=== PATIENT | female | born 1995 | race Hispanic/Latino ===

== ENCOUNTER 2019-08-06 13:19 | Inpatient (IN) | payer OTHER ==
[~2019-08-06] VITALS: Ht 177.8 cm; Wt 80.3 kg
[~2019-08-06 13:19] MED LIST: IBUP-2784 PO
[2019-08-06] MEDS ORDERED: SODIUM CHLORIDE 0.9% 1000ML 1,000 ML IV ONE ×2 (13:52→16:45)
[2019-08-06] MEDS ORDERED: ONDANSETRON HCL 4 MG/2 ML VIAL ONE (13:52)
[2019-08-06 14:05] LABS: BASOPHILS % (AUTO) 0.4 % (0.0-5.0); EOSINOPHILS % (AUTO) 0.4 % (0.0-8.0); HEMATOCRIT 41.1 % (36-48); LYMPHOCYTES % (AUTO) 11.7 % (21.0-51.0); MEAN CORPUSCULAR HEMOGLOBIN 28.7 pg (27.0-33.0); MEAN CORPUSCULAR HGB CONC 34.7 g/dL (32.0-36.0); MEAN CORPUSCULAR VOLUME 82.7 fL (79-99); MONOCYTES % (AUTO) 5.6 % (3.0-13.0); NEUTROPHILS % (AUTO) 81.9 % (40.0-77.0); PLATELET COUNT (AUTO) 308 K/uL (130-400); RED BLOOD CELL COUNT(AUTO) 4.97 MIL/uL (4.00-5.50); RED CELL DISTRIBUTION WIDTH 12.6 % (11.0-15.5); WHITE BLOOD COUNT (AUTO) 11.2 K/uL (4.8-10.8)
[2019-08-06 14:16] LABS: POTASSIUM 3.8 mmol/L (3.5-5.1)
[2019-08-06 14:21] LABS: BILIRUBIN,TOTAL 0.9 mg/dL (0.2-1.0); TOTAL PROTEIN, SERUM 7.7 g/dL (6.0-8.3)
[2019-08-06 14:22] LABS: AMYLASE 33 U/L (25-115); LIPASE 110 U/L (114-286)
[2019-08-06] MEDS ORDERED: KETOROLAC TROMETHAMINE 30MG/ML ONE (14:34)
[2019-08-06 15:21] LABS: APPEARANCE,URINE Clear (CLEAR); BILIRUBIN,URINE Negative (NEGATIVE); COLOR,URINE Yellow (YELLOW); GLUCOSE, URINE (UA) Negative (NEGATIVE); KETONES,URINE Negative (NEGATIVE); LEUKOCYTE ESTERASE ,URINE Negative (NEGATIVE); NITRATE,URINE Negative (NEGATIVE); OCCULT BLOOD,URINE Moderate (NEGATIVE); PH,URINE 6.5 (5.0-8.0); PROTEIN,URINE Negative (NEGATIVE)
[2019-08-06 15:29] LABS: AMPHET/METH SCREEN,URINE NEGATIVE (NEGATIVE); BARBITURATE SCREEN, URINE NEGATIVE (NEGATIVE); BENZODIAZEPINES SCREEN,URINE NEGATIVE (NEGATIVE); CANNABINOID SCREEN,URINE NEGATIVE (NEGATIVE); COCAINE SCREEN,URINE NEGATIVE (NEGATIVE); OPIATE SCREEN,URINE NEGATIVE (NEGATIVE); PHENCYCLIDINE SCREEN,URINE NEGATIVE (NEGATIVE)
[2019-08-06 15:54] LABS: BACTERIA,URINE Rare /HPF (None Seen); WBC,URINE 0-1 /HPF (0-1)
[2019-08-06 15:55] LABS: SQUAMOUS EPITHELIAL CELL,UR Rare /HPF (0-2)
[2019-08-06] MEDS ORDERED: ONDANSETRON HCL 4 MG/2 ML VIAL IV PRN (16:15)
[2019-08-06] MEDS ORDERED: ACETAMINOPHEN 325 MG TAB PO PRN ×2 (16:15)
[2019-08-06] MEDS ORDERED: ZOSYN 3.375GM+NS 50ML 50 ML IV ONE (17:14)
[2019-08-06] MEDS: ZOSYN 3.375GM+NS 50ML 50 ML IV SCH ×2 (18:00→23:59)
[2019-08-06 20:00] VITALS: BP 130/80
[2019-08-06] MEDS: FAMOTIDINE/PF 20 MG/2 ML VIAL IV SCH (23:39)
[2019-08-06] MEDS: MORPHINE SULFATE 2 MG/ML 1ML SYG IV PRN (23:39)
[2019-08-06 23:41] VITALS: BP 136/89
[2019-08-07] VITALS (25 sets, daily range): BP systolic 109–142; BP diastolic 51–85
[2019-08-07] MEDS: SODIUM CHLORIDE 0.9% 1000ML 2,000 ML IV SCH ×3 (04:26→18:04)
[2019-08-07] MEDS: ZOSYN 3.375GM+NS 50ML 50 ML IV SCH ×4 (06:05→23:40)
[2019-08-07] MEDS: FAMOTIDINE/PF 20 MG/2 ML VIAL IV SCH ×2 (09:05→20:55)
[2019-08-07] MEDS: MORPHINE SULFATE 2 MG/ML 1ML SYG IV PRN (09:05)
--- NOTE | 2019-08-07 10:50 | NUR ---
[employer] MOTHER AT BEDSIDE. PATIENT IS AAOX3, STATES INDEPENDENCE, LIVES WITH HER SON IN PARENTS HOME ALONG WITH BROTHERS AND SISTERS, NO PROVIDER, NO EQUIPMENT, AND FEELS SAFE TO RETURN HOME. Addendum: 08/07/19 at 1109 by MAHESH GILL Amended: Links added.
[2019-08-07] MEDS ORDERED: BUPIVACAINE/PF 0.25% 30ML VIAL IJ ONE (12:31)
[2019-08-07] MEDS ORDERED: LIDOCAINE 1%-EPI 1:100,000 20 ML VIAL IJ ONE (12:31)
--- NOTE | 2019-08-07 12:42 | NUR ---
MEDICATION ZOSYN WAS NOT ADMINISTERED AT 0805. REASSESSMENT WAS BEING DONE. Addendum: 08/07/19 at 1243 by LIAN CHOUDHARY LVN LVN UNABLE TO KEELEYO.
--- NOTE | 2019-08-07 13:10 | NUR ---
PT LEFT UNIT VIA BED TO HOLDING AT THIS TIME.
[2019-08-07] MEDS ORDERED: ONDANSETRON HCL 4 MG/2 ML VIAL ONE (13:12)
[2019-08-07] MEDS ORDERED: SUCCINYLCHOLINE 200MG/10ML SYR ONE (13:12)
[2019-08-07] MEDS ORDERED: LIDOCAINE PF 2% 5ML ABBOJECT ONE (13:12)
[2019-08-07] MEDS ORDERED: DEXAMETHASONE SOD PHOSPHATE 10MG/ML 1ML VIAL ONE (13:12)
[2019-08-07] MEDS ORDERED: NEOSTIGMINE 5MG/5ML SYR IV ONE (13:13)
[2019-08-07] MEDS ORDERED: MIDAZOLAM HCL 1 MG/ML 2ML VIAL ONE (13:13)
[2019-08-07] MEDS ORDERED: GLYCOPYRROLATE 1 MG/5 ML SYRINGE ONE (13:13)
[2019-08-07] MEDS ORDERED: FENTANYL CITRATE PF 50 MCG/1 ML 2ML VIAL ONE ×2 (13:13→14:29)
[2019-08-07] MEDS ORDERED: PROPOFOL 10 MG/ML 20ML VIAL IV ONE (13:13)
[2019-08-07] MEDS ORDERED: ROCURONIUM 10MG/1ML SYR 10 MG/ML ML ONE (13:14)
[2019-08-07] MEDS ORDERED: LACTATED RINGERS 1000ML 1,000 ML IV ONE (13:16)
[2019-08-07] MEDS ORDERED: MEPERIDINE-PF 25 MG/ML SYG ONE ×2 (15:28→15:39)
--- NOTE | 2019-08-07 16:25 | NUR ---
PATIENT RETURNED TO ROOM FROM PACU. PATIENT DROWSY, AROUSED TO VOICE. DRESSINGS TO ABDOMEN DRY AND INTACT. CALL LIGHT LEFT IN REACH. ADVISED PATIENT TO CALL WITH ANY NEEDS OR CONCERNS.
--- NOTE | 2019-08-07 16:40 | NUR ---
ASSISTED PATIENT IN USING BEDPAN. 250 ML OF YELLOW URINE EMPTIED FROM BEDPAN. PERICARE GIVEN. ADVISED PATIENT TO CALL WITH ANY NEEDS. PT VOICED UNDERSTANDING.
[2019-08-07] MEDS ORDERED: OXYCODONE/ACETAMIN 5/325MG TAB PO PRN (17:00)
--- NOTE | 2019-08-07 20:37 | NUR ---
ambulating in the hallway, accompanied by pt is in stable condition Addendum: 08/07/19 at 2037 by ALIZA BERG RN Amended: Links added.
[2019-08-08] MEDS: SODIUM CHLORIDE 0.9% 1000ML 2,000 ML IV SCH ×2 (01:59→09:23)
[2019-08-08 03:30] VITALS: BP 113/56
[2019-08-08] MEDS: ZOSYN 3.375GM+NS 50ML 50 ML IV SCH ×2 (05:46→12:26)
[2019-08-08 06:21] LABS: BASOPHILS % (AUTO) 0.1 % (0.0-5.0); LYMPHOCYTES % (AUTO) 9.8 % (21.0-51.0); MEAN CORPUSCULAR HGB CONC 35.1 g/dL (32.0-36.0); MEAN CORPUSCULAR VOLUME 82.6 fL (79-99); MONOCYTES % (AUTO) 5.8 % (3.0-13.0); NEUTROPHILS % (AUTO) 84.3 % (40.0-77.0); PLATELET COUNT (AUTO) 278 K/uL (130-400); RED CELL DISTRIBUTION WIDTH 12.8 % (11.0-15.5); WHITE BLOOD COUNT (AUTO) 8.1 K/uL (4.8-10.8)
[2019-08-08 06:26] LABS: CREATININE 0.8 mg/dL (0.5-1.5); POTASSIUM 4.1 mmol/L (3.5-5.1)
[2019-08-08 07:38] VITALS: BP 132/80
--- NOTE | 2019-08-08 08:44 | NUR ---
PATIENT AMBULATING IN HALLWAY WITH FAMILY MEMBER. STEADY GAIT NOTED.
[2019-08-08] MEDS: FAMOTIDINE/PF 20 MG/2 ML VIAL IV SCH (09:23)
[2019-08-08 11:22] VITALS: BP 122/68
--- NOTE | 2019-08-08 13:00 | NUR ---
DR. Parmar ROUNDING IN ROOM. NEW ORDERS RECEIVED, PATIENT OKAY FOR DISCHARGE.
--- NOTE | 2019-08-08 15:00 | NUR ---
GAUZE PADSX4 REMOVED. STERISTRIPS TO INCISIONS. NO OOZING NOTED. INCISION CARE REVIEWED WITH PT. PT VOICED UNDERSTANDING.
--- NOTE | 2019-08-08 15:45 | NUR ---
DISCHARGE PT LEFT UNIT VIA WHEELCHAIR WITH BELONGINGS IN HAND. PERSONAL VEHICLE USED FOR TRANSPORTATION. NO COMPLAINTS OR CONCERNS ADDRESSED FROM PATIENT ON DISCHARGE.
== END 2019-08-08 15:45 | disposition home or self-care (01) | DRG 419 ==
LOC: EDH 13:19 → OBSVTOIN 16:11 → EDHIP 16:11 → WSH 20:03
PROVIDERS: ADMIT Family Medicine; ATTEND Family Medicine
PROC: 0FT44ZZ Resection of Gallbladder, Percutaneous Endoscopic Approach (ICD-10-PCS; principal; 2019-08-07 14:10)
DX: K80.00 Calculus of gallbladder with acute cholecystitis without obstruction (principal)
CPT/HCPCS: 36415; 71045; 76705; 80048; 80053; 80305; 81001; 82150; 83690; 84702; 85025; 88304; G0378; J0330; J1100; J1885; J2001; J2175; J2250; J2405; J2543; J2704; J2710; J3010; J3490; J7030; J7120